=== PATIENT | male | born 1975 | race Caucasian/White ===

== ENCOUNTER 2018-04-05 02:33 | Day surgery (SDC) | payer OTHER ==
[~2018-04-05] VITALS: Ht 180.3 cm; Wt 92.5 kg
[~2018-04-05 02:33] MED LIST: ADVIL,NUPRIN,M200 MG PO; CARAFATE1 GM PO; PRILOSEC10 MG PO
[2018-04-05 03:14] LABS: HEMATOCRIT 46.5 % (38.0-50.0); HEMOGLOBIN 16.6 G/DL (12.5-16.6); MCH 31.4 PG (29.0-34.0); MCHC 35.7 G/DL (30.0-36.0); MCV 87.9 FL (86-99); PLATELET COUNT 263 K/uL (156-360); RBC DIS.WIDTH-CV 11.7 % (11.8-14.6); RBC DIS.WIDTH-SD 37.7 % (39-53); RED BLOOD COUNT 5.29 M/uL (4.00-5.50); WHITE BLOOD COUNT 6.1 K/uL (4.1-10.2)
[2018-04-05 03:25] LABS: CHLORIDE 102 mEq/L (99-109); SODIUM 139 mEq/L (136-147)
[2018-04-05 03:27] LABS: GLUCOSE 236 mg/dL (70-99)
[2018-04-05 03:30] LABS: SERUM ETHYL ALCOHOL 205 mg/dL
[2018-04-05 03:31] LABS: CREATININE 1.1 mg/dL (0.6-1.3); GFR ESTIMATE (CALCULATED) > 59 mL/min/ (58.99-99999)
[2018-04-05 03:32] LABS: UREA NITROGEN (BUN) 10 mg/dL (9-23)
[2018-04-05 05:17] VITALS: BP 135/90
== END 2018-04-05 07:25 | disposition home or self-care (01) ==
LOC: EME 02:33 → SDC 05:19 → EME 05:19 → SDC 07:25
PROVIDERS: Emergency Medicine; Internal Medicine Gastroenterology
DX: T18.128A Food in esophagus causing other injury, initial encounter (principal); K21.9 Gastro-esophageal reflux disease without esophagitis; E11.9 Type 2 diabetes mellitus without complications; Z87.891 Personal history of nicotine dependence
CPT/HCPCS: 70360; 80048; 82948; 85027; 88305; 99281; 99284; G0480; J0330; J2405; J7030